=== PATIENT | female | born 1960 | race Caucasian/White ===

== ENCOUNTER 2016-06-22 15:14 | Emergency (ER) | payer BC, OTHER ==
[~2016-06-22] VITALS: Ht 162.6 cm; Wt 67.6 kg
--- NOTE | 2016-06-22 15:21 | NUR ---
PT IS IN ROOM #1B. DR PATEL EVALUATED THE PT.
[2016-06-22] MEDS ORDERED: IV NORMAL SALINE 500 ML BAG IV ONE (15:30)
[2016-06-22] MEDS ORDERED: NITROGLYCERIN 0.4 MG/TAB BOTTLE SL ONE ×2 (15:30→15:37)
[2016-06-22] MEDS ORDERED: ASPIRIN 325 MG TABLET PO ONE (15:30)
[2016-06-22] MEDS ORDERED: ASPIRIN 325 MG TABLET ONE (15:37)
[2016-06-22 15:39] LABS: HEMATOCRIT 39.7 % (37.0-47.0); MEAN CORPUSCULAR HEMOGLOBIN 30.1 uug (27.0-31.0); MEAN CORPUSCULAR HGB CONC 33 g/dL (32.0-37.0); MEAN CORPUSCULAR VOLUME 91.6 fL (81.0-99.0); PLATELET COUNT (AUTO) 307 K/uL (150-450); RED BLOOD CELL COUNT(AUTO) 4.33 MIL/uL (4.20-5.40); RED CELL DISTRIBUTION WIDTH 12.1 % (11.5-14.5); WHITE BLOOD COUNT (AUTO) 6.3 K/uL (4.0-11.2)
[2016-06-22 15:43] LABS: CALCIUM 9.4 mg/dL (8.5-10.1); CARBON DIOXIDE 28 mmol/L (21-32); CHLORIDE 104 mmol/L (98-107); CREATININE 0.9 mg/dL (0.6-1.3); GFR 65 mL/min (>60); GLUCOSE 113 mg/dL (74-106); POTASSIUM 3.6 mmol/L (3.5-5.1); SODIUM SERUM 144 mmol/L (136-145); UREA NITROGEN, BLOOD 15 mg/dL (7-18)
[2016-06-22 15:47] LABS: LYMPHOCYTES % (MANUAL) 36 % (20-40); MONOCYTES % (MANUAL) 4 % (2-10); NEUTROPHILS % (MANUAL) 60 % (42-75); PLATELET ESTIMATE ADEQUATE
[2016-06-22 15:56] LABS: ALANINE AMINOTRANSFERASE 29 U/L (14-59); ALBUMIN 4.2 g/dL (3.4-5.0); ALKALINE PHOSPHATASE 85 U/L (50-136); ASPARTATE AMINOTRANSFERASE 18 U/L (15-37); BILIRUBIN,DIRECT < 0.1 mg/dL (0.0-0.2); BILIRUBIN,TOTAL 0.3 mg/dL (0.2-1.0); NT-PRO BNP 59 pg/mL (0-125)
--- NOTE | 2016-06-22 16:27 | NUR ---
PT WAS D/C TO HOME. D/C INSTRUCTIONS GIVEN TO THE PT.
[2016-06-22 16:28] VITALS: BP 139/75
== END 2016-06-22 16:29 | disposition home or self-care (01) ==
LOC: ER 15:14
DX: R07.89 Other chest pain (principal); E78.00 Pure hypercholesterolemia, unspecified
CPT/HCPCS: 36415; 71010; 80048; 80076; 83880; 84484; 85025; 85730; 93005; 96360; 99285; A4663; J7030; 70030-TC

== ENCOUNTER 2016-12-18 15:17 | Outpatient (CLI) | payer BC, OTHER | END 2016-12-18 23:59 | disposition home or self-care (01) | LOC: XRAY 15:17 | PROVIDERS: ATTEND Internal Medicine | DX: M19.071 Primary osteoarthritis, right ankle and foot (principal) | CPT/HCPCS: 73610; 73630 ==

== ENCOUNTER 2017-11-12 10:21 | Emergency (ER) | payer BC, MEDICAID, OTHER ==
[~2017-11-12] VITALS: Ht 160 cm; Wt 68.0 kg
[2017-11-12 11:09] LABS: BASOPHILS % (AUTO) 0.7 % (0.0-2.0); EOSINOPHILS % (AUTO) 0.9 % (0.0-7.0); HEMATOCRIT 37.1 % (31.2-41.9); HEMOGLOBIN 12.6 g/dL (10.9-14.3); LYMPHOCYTES # (AUTO) 1.2 K/uL (20.0-40.0); LYMPHOCYTES % (AUTO) 24.7 % (20.5-51.5); MEAN CORPUSCULAR HEMOGLOBIN 32.2 uug (24.7-32.8); MEAN CORPUSCULAR HGB CONC 34 g/dL (32.3-35.6); MEAN CORPUSCULAR VOLUME 94.5 fL (75.5-95.3); MONOCYTES # (AUTO) 0.3 K/uL (2.0-10.0); MONOCYTES % (AUTO) 6.9 % (0.0-11.0); NEUTROPHILS # (AUTO) 3.1 K/uL (1.8-8.9); NEUTROPHILS % (AUTO) 66.8 % (38.5-71.5); PLATELET COUNT (AUTO) 231 K/uL (179-408); RED BLOOD CELL COUNT(AUTO) 3.93 MIL/uL (3.63-4.92); WHITE BLOOD COUNT (AUTO) 4.7 K/uL (3.8-11.8)
[2017-11-12 11:13] LABS: CREATININE 0.8 mg/dL (0.6-1.3); POTASSIUM 3.9 mmol/L (3.5-5.1)
--- NOTE | 2017-11-12 12:08 | NUR ---
Patient discharged to home in stable conditon and steady gait. Written and verbal after care instructions given to patient. Patient verbalizes understanding of instructions.
[2017-11-12 12:09] VITALS: BP 129/88
== END 2017-11-12 12:10 | disposition home or self-care (01) ==
LOC: ER 10:21
DX: R42 Dizziness and giddiness (principal); E78.00 Pure hypercholesterolemia, unspecified
CPT/HCPCS: 36415; 70030-TC; 70450; 73110; 85025; 93005; A4663; J7030

== ENCOUNTER 2018-02-27 17:06 | Emergency (ER) | payer BC, MEDICAID, OTHER ==
[~2018-02-27] VITALS: Ht 162.6 cm; Wt 67.6 kg
[2018-02-27] MEDS ORDERED: LORAZEPAM 2 MG/1 ML VIAL ONE (17:59)
[2018-02-27] MEDS ORDERED: LORAZEPAM 2 MG/1 ML VIAL IV ONE (18:00)
[2018-02-27 18:05] LABS: BASOPHILS % (AUTO) 0.4 % (0.0-2.0); HEMATOCRIT 38.8 % (31.2-41.9); HEMOGLOBIN 13.4 g/dL (10.9-14.3); LYMPHOCYTES # (AUTO) 0.7 K/uL (20.0-40.0); MEAN CORPUSCULAR HEMOGLOBIN 32.3 uug (24.7-32.8); MEAN CORPUSCULAR HGB CONC 35 g/dL (32.3-35.6); MEAN CORPUSCULAR VOLUME 93.6 fL (75.5-95.3); MONOCYTES # (AUTO) 0.2 K/uL (2.0-10.0); MONOCYTES % (AUTO) 2.9 % (0.0-11.0); NEUTROPHILS # (AUTO) 7.4 K/uL (1.8-8.9); NEUTROPHILS % (AUTO) 88.7 % (38.5-71.5); PLATELET COUNT (AUTO) 243 K/uL (179-408); RED BLOOD CELL COUNT(AUTO) 4.14 MIL/uL (3.63-4.92); WHITE BLOOD COUNT (AUTO) 8.4 K/uL (3.8-11.8)
[2018-02-27 18:09] LABS: CREATININE 0.8 mg/dL (0.6-1.3); POTASSIUM 3.4 mmol/L (3.5-5.1)
[2018-02-27 18:15] LABS: BILIRUBIN,DIRECT 0.1 mg/dL (0.0-0.2); BILIRUBIN,TOTAL 0.4 mg/dL (0.2-1.0); TOTAL PROTEIN, SERUM 7.7 g/dL (6.4-8.2)
--- NOTE | 2018-02-27 19:13 | NUR ---
Patient discharged to home in stable conditon. Written and verbal after care instructions given. Patient verbalizes understanding of instructions.pt says feels better, deneis any dizziness at this time. pt with daughter. pt not driving
[2018-02-27 19:16] VITALS: BP 112/81
== END 2018-02-27 19:17 | disposition home or self-care (01) ==
LOC: ER 17:07
DX: R42 Dizziness and giddiness (principal); E78.00 Pure hypercholesterolemia, unspecified
CPT/HCPCS: 36415; 80048; 80076; 84484; 85025; 85730; 93005; 96374; 99284; J2060; 70030-TC; A4663; J7030

== ENCOUNTER 2023-12-30 14:32 | Emergency (ER) | payer BC, OTHER ==
[~2023-12-30] VITALS: Ht 162.6 cm; Wt 65.8 kg
[2023-12-30] MEDS ORDERED: METH-807 PO (15:50)
[2023-12-30] MEDS ORDERED: KETO10TA2 PO (15:50)
[2023-12-30] MEDS ORDERED: ACET1TAB23 PO (15:50)
[2023-12-30] MEDS ORDERED: KETOROLAC TROMETHAMINE 60 MG INJ IM ONE (15:58)
[2023-12-30] MEDS: KETOROLAC TROMETHAMINE 60 MG INJ IM ONE (16:02)
[2023-12-30 16:11] VITALS: BP 147/86; O2SAT 99
== END 2023-12-30 16:13 | disposition home or self-care (01) ==
LOC: ER 14:32
DX: M54.42 Lumbago with sciatica, left side (principal); E78.00 Pure hypercholesterolemia, unspecified; Z88.7 Allergy status to serum and vaccine
CPT/HCPCS: 99283; 96372; J1885; A4606; A4663

== ENCOUNTER 2024-06-25 13:25 | Emergency (ER) | payer BC, OTHER ==
[~2024-06-25] VITALS: Ht 162.6 cm; Wt 65.8 kg
[~2024-06-25 13:25] MED LIST: ACET1TAB23 PO; KETO10TA2 PO; METH-807 PO
[2024-06-25 17:33] VITALS: BP 121/67; TEMP 97.7; O2SAT 99
== END 2024-06-25 17:35 | disposition home or self-care (01) ==
LOC: ER 13:28
DX: S13.4XXA Sprain of ligaments of cervical spine, initial encounter (principal); S39.012A Strain of muscle, fascia and tendon of lower back, initial encounter; E78.00 Pure hypercholesterolemia, unspecified; R07.9 Chest pain, unspecified; Z88.7 Allergy status to serum and vaccine; Z87.39 Personal history of other diseases of the musculoskeletal system and connective tissue; V43.52XA Car driver injured in collision with other type car in traffic accident, initial encounter; Y93.89 Activity, other specified; Y92.488 Other paved roadways as the place of occurrence of the external cause; Y99.8 Other external cause status
CPT/HCPCS: 71045; 72125; 72131; A4606; A4663

== ENCOUNTER → 2025-03-01 | Day surgery (SDC) | payer BC, OTHER ==
[~2025-03-01] MED LIST changes: -ACET1TAB23 PO; +ACET1TAB93 PO
== END | disposition left against medical advice (07) ==
LOC: DS 09:48
PROVIDERS: ATTEND Internal Medicine Gastroenterology
DX: Z53.20 Procedure and treatment not carried out because of patient's decision for unspecified reasons (principal)